=== PATIENT | female | born 1945 | race Caucasian/White ===

== ENCOUNTER → 2016-11-03 | Outpatient (CLI) | payer MEDICARE, BC ==
--- NOTE | ~2016-11-03 | MY29 ---
[facility] A Service of [facility] RADIOLOGY TEXT RESULTS PATIENT: LIA VEGA LOCATION: [facility] : 47 UNIT #: [id number] AGE: [address]: Pranay Schneider MD SEX: F ORDER DR: [id number] [facility] [address] [place], [place] [address] [id number] O MR#: [id number] Acc #: [id number] NAME: LIA VEGA : 1945 SEX: F STUDY DATE/TIME: 11/03/2016 11:53 UNIT: [facility] ROOM: STUDY DESCRIPTION: MY IRVING SCREENING W/ CAD BILAT Attending Physician: Pranay Schneider M.D. Ordering Physician: Pranay Schneider M.D. Primary Care Physician: Pranay Schneider M.D. MEDICAL IMAGING REPORT This report is preliminary unless electronic signature is present EXAM Digital screening mammogram 11/03/2016 HISTORY 71-year-old woman strong family history, mother age 36. Annual screen. COMPARISON 06/28/2012, 06/27/2013, 06/26/2014. FINDINGS Digital imaging of each breast was completed utilizing a two-view examination of each breast in craniocaudal and mediolateral-oblique projections. Review and interpretation of digital mammograms include a second review in conjunction with FDA-approved CAD device. There is a normal parenchymal presentation bilaterally consistent with the patient's age. There are no breast masses imaged and no parenchymal asymmetry is visualized. There are no suspicious microcalcifications and I see no focal architectural disturbance. IMPRESSION Negative screening digital mammogram. One-year followup recommended. Patients over the age of 40 are entered into a reminder system with target due date for the next mammogram. A result letter will also be sent to the patient. BIRADS: 1 Negative Dictated by... Korey Chisholm M.D. [facility] A Service of [facility] RADIOLOGY TEXT RESULTS PATIENT: LIA VEGA LOCATION: [facility] : 47 UNIT #: [id number] AGE: [address]: Pranay Schneider MD SEX: F ORDER DR: THIS IS AN ELECTRONICALLY VERIFIED REPORT Korey Chisholm M.D. at 11/06/2016 2:54 PM MURRAY/dennis TD: 11/06/2016 14:08 JOB #: [id number] MEDICAL IMAGING REPORT Page 1 of 1 COPY
== END | disposition home or self-care (01) ==
LOC: CWCC 11:30
DX: Z12.31 Encounter for screening mammogram for malignant neoplasm of breast (principal); Z80.3 Family history of malignant neoplasm of breast
CPT/HCPCS: G0202